=== PATIENT | female | born 1995 | race Caucasian/White ===

== ENCOUNTER 2019-06-22 18:10 | Inpatient (IN) | payer BC, SELFPAY ==
[2019-06-22 18:22] LABS: Actual Bicarbonate (HCO3a) 1.9 mEq/L (22-28); Analyzer IN Cardio ER; Calcium, Ionized 1.12 mmol/L (1.12-1.30); Hemoglobin (Hb) 12.7 g/dL (12.0-16.0); O2 Tension (PaO2) 147.3 mmHg (80.0-100.0); Potassium - ABG Lab 4.68 mmol/L (3.70-5.30)
[2019-06-22] MEDS ORDERED: Sodium Bicarb 50 MEQ/50 ML VIAL ONE (18:24)
[2019-06-22 18:30] LABS: pH, Arterial 6.86 (7.35-7.45)
[2019-06-22 18:31] LABS: Base Excess (BEa) -30.3 mEq/L (-2.0 to +3.0); Puncture Site LRA
--- NOTE | 2019-06-22 18:37 | RAD ---
Chest AP view INDICATION: Diabetic ketoacidosis COMPARISON: None FINDINGS: Lungs:The lungs are clear Cardiac silhouette:The cardiomediastinal silhouette appears within normal limits. Pulmonary vasculature:Normal Pleural spaces:No pleural effusion or pneumothorax is demonstrated. Upper abdomen:No abnormality seen. Osseous structures: No acute osseous abnormality. Additional findings:None. IMPRESSION: No acute cardiopulmonary abnormality.
[2019-06-22 18:38] LABS: Hemoglobin 12.3 g/dL (12.0-16.0); Mean Corpuscular HGB CONC 31.9 g/dL (32.0-36.0); Mean Corpuscular Hemoglobin 32.2 pg (27.0-31.0); Mean Platelet Volume 6.6 fL (7.4-10.4); Platelet Count 547 thou/uL (130-400); RBC Distribution Width 14.3 % (11.5-14.5); Red Blood Cell (RBC) Count 3.82 mill/uL (4.20-5.40); White Blood Cell (WBC) Count 19.8 thou/uL (4.8-10.8)
[2019-06-22 18:40] LABS: Bilirubin Negative (Negative); Blood, Urine Negative (Negative); Clarity Clear (Clear); Glucose, Urine (Dipstick) Greater than 1000 mg/dL (Negative); Leukocyte Negative Leu/uL (Negative); Nitrite Negative (Negative); Protein, Urine (Dipstick) 20 mg/dL (Neg-Trace); Urobilinogen Normal mg/dL (Less than 2)
[2019-06-22 18:44] LABS: Pregnancy Test - Urine (BHCG) Negative (Negative); Pregu Control Background? CLEAR/WHITE (CLR/WHITE); Pregu Control Bar Appear? YES (CONTROL BAR); Specific Gravity 1.021 (1.002-1.036)
[2019-06-22] MEDS ORDERED: D5 1/2 NS w/40 mEq KCL 1,000 ML IV SCH (18:45)
[2019-06-22] MEDS ORDERED: Insulin Regular 100 units/100 ml in NS IVPB SCH (18:45)
[2019-06-22 18:47] LABS: BHCG - Serum Negative (NEGATIVE); Pregs Control Background? CLEAR/WHITE (CLR/WHITE); Pregs Control Bar Appear? YES (CONTROL BAR)
[2019-06-22] MEDS ORDERED: Cefepime 1 GM VIAL ONE (18:50)
[2019-06-22 18:54] LABS: Band 13 % (5-11); Lymphocytes 23 % (21-51); MDiff Complete? YES; Macrocytosis SLIGHT = 6-15 cells (100X) (0-5/hpf); Metamyelocyte 1 % (0-0); Monocytes 3 % (0-10); Neutrophil 53 % (42-75); Platelet Morphology Comment Appears Increased; Reactive Lymphocytes 7 % (0-10)
[2019-06-22 18:55] LABS: Amphetamine Not Detected (NotDetected); Barbiturates Screen Not Detected (NotDetected); Benzodiazepine Screen Not Detected (NotDetected); Cocaine Metabolite Screen Not Detected (NotDetected); Medtox Control Line Valid? VALID (VALID); Medtox Reader # READER 4; Methadone Not Detected (NotDetected); Methamphetamine Not Detected (NotDetected); Opiate Screen Not Detected (NotDetected); Oxycodone Screen Not Detected (NotDetected); Phencyclidine (PCP) Not Detected (NotDetected); THC/Cannabinoid Screen Not Detected (NotDetected); Tricyclic Screen Not Detected (NotDetected)
[2019-06-22 18:57] LABS: Acetaminophen Less than 6.0 mcg/mL (10.0-30.0); Alcohol Less than 10 mg/dL (Less than 10); Magnesium 2.1 mg/dL (1.6-2.6); Salicylate Less than 8.0 mg/dL (15.0-30.0)
[2019-06-22 18:59] LABS: ALT (SGPT) 119 U/L (8-55); AST (SGOT) 91 U/L (5-34); Alkaline Phosphatase 142 U/L (40-110); BUN (Urea Nitrogen) 11 mg/dL (7.0-18.7); Bilirubin, Total Less than 0.2 mg/dL (0.2-1.2); Calc. Creatinine Clearance 0 mL/min (70-130); Calcium 7.5 mg/dL (7.8-10.44); Chloride 110 mmol/L (98-107); Estimated GFR-MDRD 55; Lipase 20 U/L (8-78); Sodium 140 mmol/L (136-145)
[2019-06-22] MEDS ORDERED: Insulin Regular 300 UNITS/3 ML VIAL ONE (18:59)
[2019-06-22 19:05] LABS: Carbon Dioxide Less than 8 mmol/L (22-29); Glucose 749 mg/dL (70-105)
[2019-06-22 19:14] LABS: Free T4 (Free Thyroxine) 0.71 ng/dL (0.70-1.48); Thyroid Stimulating Hormone 0.3368 uIU/mL (0.35-4.94)
--- NOTE | 2019-06-22 19:55 | CT ---
CT Brain WO Con: 06/22/2019 7:18 PM CLINICAL HISTORY: Unresponsive history of DKA. IMAGING TECHNIQUE: Multiple CT images were obtained of the brain without IV contrast. COMPARISON: None. FINDINGS: Brain: No acute infarct or hemorrhage is evident. No midline shift. Ventricles: Normal. No hydrocephalus.. Skull: Intact.. Visualized Paranasal sinuses: Clear.. Mastoid air cells:Clear. Extracranial soft tissues:Normal. IMPRESSION: No acute intracranial abnormality.
[2019-06-22 20:13] LABS: BUN (Urea Nitrogen) 11 mg/dL (7.0-18.7); Calc. Creatinine Clearance 0 mL/min (70-130); Calcium 6.2 mg/dL (7.8-10.44); Carbon Dioxide Less than 8 mmol/L (22-29); Chloride 115 mmol/L (98-107); Estimated GFR-MDRD 75; Glucose 601 mg/dL (70-105); Potassium 3.6 mmol/L (3.5-5.1); Sodium 144 mmol/L (136-145)
[2019-06-22] MEDS ORDERED: Calcium Chloride 1 GM/10 ML Abboject SYRINGE ONE (20:23)
--- NOTE | 2019-06-22 20:26 | ULT ---
RIGHT UPPER QUADRANT ULTRASOUND CLINICAL HISTORY: DKA and elevated LFTs. COMPARISON: None FINDINGS: Liver:Diffuse increased echogenicity. The liver is enlarged measuring 21 cm. Intrahepatic bile ducts: No intrahepatic or extrahepatic biliary dilation.; Common bile duct: 2.5 mm. Gallbladder: Normal appearing. Alexander's sign:None Main portal vein:Patent with hepatopedal flow. Pancreas:Visualized pancreas appears normal. Right kidney: Right kidney measures 11.5 x 4.1 x 4.7 cm. No focal renal lesion or hydronephrosis. Additional findings: None. IMPRESSION: Hepatomegaly with fatty infiltration
[2019-06-22] MEDS ORDERED: Sodium Bicarb 50 MEQ/50 ML Abboject 8.4% SYRINGE ONE (20:41)
[2019-06-22] MEDS ORDERED: STERILE WATER IV SCH (20:45)
[2019-06-22] MEDS ORDERED: SODIUM BICARBONATE IV SCH (20:45)
[2019-06-22] MEDS ORDERED: Sodium Chloride 0.9% 1,000 ML IV PRN ×4 (21:01)
[2019-06-22] MEDS ORDERED: D5 1/2 NS w/20 mEq KCL 1,000 ML IV PRN (21:01)
[2019-06-22] MEDS ORDERED: Dextrose 5 %-0.45 % NaCl 1,000 ML IV PRN (21:01)
[2019-06-22] MEDS ORDERED: CCU Electrolyte Replacement 1 EACH IVPB SCH (21:01)
[2019-06-22] MEDS ORDERED: NS 0.9% w/ 20 MEQ KCL 1,000 ML IV PRN ×2 (21:01)
[2019-06-22] MEDS ORDERED: HUMULIN R 100 UNITS in Sodium Chloride 0.9% 100 ML IVPB SCH (21:15)
[2019-06-22 21:25] LABS: Bilirubin Negative (Negative); Blood, Urine 1+ (Negative); Clarity Clear (Clear); Glucose, Urine (Dipstick) Greater than 1000 mg/dL (Negative); Leukocyte Negative Leu/uL (Negative); Mucous/LPF Rare LPF (<2+); Nitrite Negative (Negative); Protein, Urine (Dipstick) 20 mg/dL (Neg-Trace); RBC/HPF 0-3 HPF (0-3); Squamous Epithelial 0-3 HPF (0-3); Urobilinogen Normal mg/dL (Less than 2); WBC/HPF None Seen HPF (0-3)
[2019-06-22] MEDS ORDERED: CCU ELECTROLYTE REPLACEMENT PROTOCOL FS PRN (21:26)
[2019-06-22] MEDS ORDERED: Potassium Phosphate 9 MMOL in Sodium Chloride 0.9% 100 ML IVPB PRN (21:26)
[2019-06-22] MEDS ORDERED: Potassium Chloride 40 MEQ in Sodium Chloride 0.9% 250 ML 250 ML IVPB PRN (21:26)
[2019-06-22] MEDS ORDERED: PHOS-NAK 1 PKT PACK PO PRN ×2 (21:26)
[2019-06-22] MEDS ORDERED: Potassium Phosphate 12 MMOL in Sodium Chloride 0.9% 250 ML 250 ML IV PRN (21:26)
[2019-06-22] MEDS ORDERED: Magnesium 2 GM/50 ML 2 GM in Premix Bag 1 BAG IVPB PRN (21:26)
[2019-06-22] MEDS ORDERED: Potassium Phosphate 15 MMOL in Sodium Chloride 0.9% 250 ML 250 ML IV PRN (21:26)
[2019-06-22] MEDS ORDERED: Potassium Chloride 20 MEQ TAB PO PRN (21:26)
[2019-06-22] MEDS ORDERED: Magnesium Oxide 400 MG TAB PO PRN ×2 (21:26)
[2019-06-22 21:29] LABS: Lactic Acid 3.1 mmol/L (0.5-2.2)
[2019-06-22 21:34] LABS: BUN (Urea Nitrogen) 10 mg/dL (7.0-18.7); Calc. Creatinine Clearance 0 mL/min (70-130); Calcium 7.6 mg/dL (7.8-10.44); Carbon Dioxide Less than 8 mmol/L (22-29); Chloride 120 mmol/L (98-107); Estimated GFR-MDRD 71; Glucose 380 mg/dL (70-105); Potassium 4.3 mmol/L (3.5-5.1); Sodium 150 mmol/L (136-145)
[2019-06-22 21:38] LABS: Bacteria/HPF Rare-Few HPF (None Seen)
[2019-06-22] MEDS ORDERED: Sodium Bicarb 50 MEQ/50 ML VIAL IVP SCH (21:45)
[2019-06-22] MEDS: cefTRIAXone\\ROCEPHIN 1 GM in Sodium Chloride 0.9% 100 ML IVPB SCH (21:53)
[2019-06-22 21:54] LABS: Magnesium 1.7 mg/dL (1.6-2.6); Phosphorus 3.4 mg/dL (2.3-4.7)
[2019-06-22] MEDS ORDERED: Sodium Bicarbonate 150 MEQ in Dextrose 5% in Water 1,000 ML IV SCH (22:00)
[2019-06-22] MEDS ORDERED: Potassium Phosphate 30 MMOL in Sodium Chloride 0.9% 500 ML IVPB SCH (22:00)
[2019-06-22 22:02] VITALS: BMI 22.2
[2019-06-22] MEDS: Nicotine 14 MG PATCH TD SCH (22:21)
[2019-06-22 22:25] LABS: #Basophils 0.1 thou/uL (0.0-0.2); #Lymphocytes 2.3 thou/uL (1.20-3.40); #Neutrophils 11.6 thou/uL (1.40-6.50); %Basophils 0.5 % (0.0-1.0); %Eosinophils 0.2 % (0.0-10.0); %Lymphocytes 15.5 % (21.0-51.0); %Monocytes 6.6 % (0.0-10.0); %Neutrophils 77.2 % (42.0-75.0); Hemoglobin 10.7 g/dL (12.0-16.0); Mean Corpuscular HGB CONC 32.7 g/dL (32.0-36.0); Mean Corpuscular Volume 94.8 fL (78.0-98.0); Platelet Count 369 thou/uL (130-400); RBC Distribution Width 13.7 % (11.5-14.5); Red Blood Cell (RBC) Count 3.46 mill/uL (4.20-5.40)
--- NOTE | 2019-06-22 22:31 | HP ---
PRESENTING COMPLAINT: Altered mental status and hyperglycemia. HISTORY OF PRESENT ILLNESS: Ms. Nickolas Philippe is a 23-year-old female with past medical history of type 1 diabetes mellitus diagnosed at age of 11, on Tresiba and NovoLog insulin, who was brought in by EMS after the patient presented because of progressive drowsiness. In the urgent care, she was noted with glucose of over 700. She received 2 L IV fluid bolus and was transferred here. In the emergency room, on arrival, the patient was poorly responsive with breathing. She was started on nasal cannula initially. Discussion was made to intubate, but later deferred. She was noted with severe acidosis with bicarb of 2 and pH of 6.8. She was given IV sodium bicarb boluses as well as started on IV fluid and insulin drip. Her glucose on presentation was 749, was improving, with repeat to 600. The patient is slowly becoming more awakened. She admits to history of recent nasal congestion with rhinorrhea. She denies any sick contacts. Mother at bedside states cousins at home had recent flu-like symptoms. The patient apparently developed nausea and vomiting today prior to becoming drowsy at the urgent care visit. She denies any abdominal pain, but admits to generalized weakness. Her breathing pattern is slowly improving. She has been admitted for severe DKA. PAST MEDICAL HISTORY: Significant for diabetes mellitus with frequent episodes of DKA, last episode was over a year ago. HOME MEDICATIONS: Include Tresiba as well as NovoLog. The patient apparently ran out of medication earlier this morning and has not taken any of her NovoLog today. SOCIAL HISTORY: The patient admits to tobacco use. She smokes about 9 cigarettes per day. Denies any alcohol or illicit drug use. She resides in the community with the mother and her son. She is currently unemployed. FAMILY HISTORY: No history of diabetes mellitus. REVIEW OF SYSTEMS: Poor given the patient's drowsy state. The patient denies any other symptoms except those mentioned above on 10-symptoms review. She does admit to intermittent urine incontinence and polyuria since the last 4 days. ALLERGIES: [employer]ER. PHYSICAL EXAMINATION: CURRENT VITAL SIGNS: Blood pressure of 100/61, pulse of 123, respiratory rate of 19, O2 saturation is 98% on 2 L nasal cannula. GENERAL: Small, beautiful, young female, drowsy, but arousable and conversant. Appeared to be in mild pain distress. HEAD: Atraumatic, but marked facial flushing noted. Dry oral mucosa with no patches. NECK: No JVD. No carotid bruit. RESPIRATORY: Good air entry. No crepitation, but tachypneic. CARDIOVASCULAR: S1, S2. EXTREMITIES: Mild digital edema noted over the hand digits. Trace lower extremity pedal edema also noted, but no calf tenderness. Negative Homans sign. NEUROLOGIC: The patient is drowsy, but is slowly becoming more arousable and conversant with monotonous questions. LABORATORY DATA: Initial WBC of 19.8 with 13% bands, neutrophils 53%, hemoglobin 12.3. ABG with pH of 6.86 with bicarb of 1.9, pO2 of 147, A-a gradient of 38. Sodium 139, potassium 4.6 on ABG, serum sodium of 144, potassium of 3.6, chloride of 115, bicarb of less than 8, anion gap unable to measure, creatinine of 0.9, BUN of 11, lactic acid 2.7, magnesium 2.1. AST 91, ALT 190, alkaline phosphatase 142, free T4 0.7. Normal TSH of 0.33. Urine was negative. Urinalysis was negative except for greater than 1000 glucose and greater than 150 ketones. Urine drug screen was negative. Beta-hydroxybutyrate of 11.8, plasma alcohol less than 10. IMAGING DATA: Chest x-ray shows no acute cardiopulmonary process. Head CT shows no acute intracranial abnormality. EKG shows sinus tachycardia at 147 beats per minute. No ST-segment changes. Abdominal ultrasound shows hepatomegaly with fatty infiltration. IMPRESSION: 1. Diabetic ketoacidosis. 2. Severe metabolic acidosis. 3. Acute respiratory failure due to metabolic acidosis. 4. Elevated LFTs with possible nonalcoholic steatohepatitis. 5. Chronic tobacco use. 6. Leukocytosis with bandemia. PLAN: We will admit the patient to the intensive care unit. We will manage the patient for the followin. Diabetic ketoacidosis. We start insulin drip protocol. We will replace potassium with potassium phosphate. Follow glucose q.1 and BMP stat now as well as repeat q.4 hours. The patient has received 4 amps of bicarb. We will follow repeat BMP. The patient may need to start bicarb drip now until serum bicarb greater than 12. We will continue aggressive IV fluid. We will start empirical antibiotics given leukocytosis and bandemia, with Levaquin. We will also obtain blood culture x2. 2. Chronic tobacco use. Do nicotine patch. 3. Leukocytosis of unclear etiology. Follow blood culture. 4. DVT prophylaxis, subcutaneous Lovenox. Total time spent in review of record, discussion with patient and family, as well as evaluation greater than 60 minutes. Job ID: [id number]
[2019-06-22 23:39] LABS: BUN (Urea Nitrogen) 8 mg/dL (7.0-18.7); Calc. Creatinine Clearance 88 mL/min (70-130); Calcium 7.3 mg/dL (7.8-10.44); Chloride 122 mmol/L (98-107); Estimated GFR-MDRD 84; Glucose 177 mg/dL (70-105); Potassium 3.8 mmol/L (3.5-5.1); Sodium 153 mmol/L (136-145)
[2019-06-22 23:43] LABS: Carbon Dioxide Less than 8 mmol/L (22-29)
[2019-06-23] MEDS ORDERED: Dextrose 50 % In Water 50 ML SYRINGE IV SCH ×2 (00:45→04:30)
[2019-06-23] MEDS ORDERED: Dextrose 50 % In Water 50 ML SYRINGE ONE ×2 (00:45→04:12)
[2019-06-23] MEDS ORDERED: Sodium Bicarbonate 150 MEQ in Dextrose 5% in Water 1,000 ML IV SCH (01:00)
[2019-06-23 03:20] LABS: Actual Bicarbonate (HCO3a) 16.1 mEq/L (22-28); Base Excess (BEa) -7.3 mEq/L (-2.0 to +3.0); CO2 Tension 26.1 mmHg (35.0-45.0); Calcium, Ionized 1.05 mmol/L (1.12-1.30); Carboxyhemoglobin (COHb) 0.4 gm% (0.0-3.0); Hemoglobin (Hb) 10.3 g/dL (12.0-16.0); O2 Tension (PaO2) 102.5 mmHg (80.0-100.0); Potassium - ABG Lab 3.16 mmol/L (3.70-5.30); pH, Arterial 7.41 (7.35-7.45)
[2019-06-23 03:25] LABS: ALV-art Gradient 64.515 (0-20)
[2019-06-23 03:51] LABS: ALT (SGPT) 85 U/L (8-55); AST (SGOT) 67 U/L (5-34); Alkaline Phosphatase 91 U/L (40-110); Anion Gap 18 mmol/L (10-20); BUN (Urea Nitrogen) 7 mg/dL (7.0-18.7); Bilirubin, Total Less than 0.2 mg/dL (0.2-1.2); Calc. Creatinine Clearance 98 mL/min (70-130); Calcium 7.1 mg/dL (7.8-10.44); Carbon Dioxide 15 mmol/L (22-29); Chloride 120 mmol/L (98-107); Estimated GFR-MDRD Greater than 90; Globulin 2.2 g/dL (2.4-3.5); Glucose 128 mg/dL (70-105); Potassium 3.2 mmol/L (3.5-5.1); Protein, Total 5.2 g/dL (6.0-8.3); Sodium 150 mmol/L (136-145)
[2019-06-23] MEDS: Potassium Chloride 40 MEQ in Premix Bag 1 BAG IVPB PRN ×2 (03:57→08:33)
[2019-06-23] MEDS: D5 1/2 NS w/20 mEq KCL 1,000 ML IV SCH ×2 (04:12→11:26)
[2019-06-23 07:49] LABS: Anion Gap 17 mmol/L (10-20); BUN (Urea Nitrogen) 6 mg/dL (7.0-18.7); Calc. Creatinine Clearance 102 mL/min (70-130); Calcium 7.4 mg/dL (7.8-10.44); Carbon Dioxide 20 mmol/L (22-29); Chloride 117 mmol/L (98-107); Estimated GFR-MDRD Greater than 90; Glucose 214 mg/dL (70-105); Potassium 3.5 mmol/L (3.5-5.1); Sodium 150 mmol/L (136-145)
--- NOTE | 2019-06-23 08:06 | PDOC.HOSPP ---
- Subjective Encounter Date: 06/23/19 Encounter Time: 08:04 Subjective: no specific complaints - Objective Vital Signs & Weight: Vital Signs (12 hours) Temp Pulse Resp BP Pulse Ox 06/23/19 07:00 98.6 F 06/23/19 04:00 100 06/23/19 03:00 98.3 F 06/22/19 23:00 97.8 F 06/22/19 22:49 100 06/22/19 21:23 98.1 F 130 H 29 H 118/72 99 Weight Admit Weight 117 lb 15.157 oz Weight 117 lb 15.157 oz Most Recent Monitor Data Heart Rate from ECG 103 NIBP 103/59 NIBP BP-Mean 73 Respiration from ECG 7 SpO2 100 I&O: 06/22/19 06/23/19 06/24/19 06:59 06:59 06:59 Intake Total 3230 Output Total 2024 Balance 1205 Result Diagrams: 06/22/19 22:14 06/23/19 07:09 Additional Labs: Accuchecks 06/23/19 06/23/19 06/23/19 07:17 06:11 05:08 POC Glucose 185 H 104 148 H 06/23/19 06/23/19 06/23/19 04:05 03:00 02:07 POC Glucose 92 122 H 195 H 06/23/19 06/23/19 06/22/19 01:14 00:22 23:26 POC Glucose 246 H 126 H 222 H 06/22/19 06/22/19 06/22/19 22:19 21:35 21:14 POC Glucose 277 H 326 H 405 H 06/22/19 06/22/19 19:51 18:55 POC Glucose 447 H Greater than 550 H* Hospitalist ROS - Medication Medications: Active Medications Generic Name Dose Route Start Last Admin Trade Name Freq PRN Reason Stop Dose Admin Ceftriaxone Sodium 1 gm/ 100 mls @ 200 mls/hr 06/22/19 21:30 06/22/19 21:53 Sodium Chloride IVPB 100 mls Q24HR YELENA Administration Levofloxacin 750 mg/ Device 150 mls @ 100 mls/hr 06/22/19 22:00 06/22/19 21: 59 IVPB 150 mls Q24HR YELENA Administration Potassium Chloride 40 meq/ 100 mls @ 50 mls/hr 06/22/19 21:26 06/23/19 03:57 Device IVPB 100 mls ASDIR PRN Administration FOR SERUM K+ 2.5 - 3.5 Magnesium Sulfate 1 gm/ Sodium 102 mls @ 102 mls/hr 06/22/19 21:26 06/23/19 00:23 Chloride IV 102 mls PRN PRN Administration MAG LEVEL 1.4 - 2.0 Potassium Chloride/Dextrose/Sod Cl 1,000 mls @ 200 mls/hr 06/23/19 04:15 04:12 D5 1/2 Ns W/20 Meq Kcl IV 1,000 mls .Q5H YELENA Administration Nicotine 14 mg 06/22/19 22:00 06/22/19 22:21 Nicoderm Patch TD 14 mg Q24HR YELENA Administration - Exam General Appearance: awake alert Heart: RRR, no murmur Respiratory: CTAB, no wheezes Gastrointestinal: soft, normal bowel sounds, tender to palpation Extremities: no edema Hosp A/P (1) DKA, type 1 Code(s): E10.10 - TYPE 1 DIABETES MELLITUS WITH KETOACIDOSIS WITHOUT COMA Status: Acute Qualifiers: Diabetes mellitus complication detail: without coma Qualified Code(s): E10.10 - Type 1 diabetes mellitus with ketoacidosis without coma (2) Encephalopathy acute Code(s): G93.40 - ENCEPHALOPATHY, UNSPECIFIED Status: Resolved (3) Nausea & vomiting Code(s): R11.2 - NAUSEA WITH VOMITING, UNSPECIFIED Status: Resolved Qualifiers: Vomiting type: unspecified Vomiting Intractability: non-intractable Qualified Code(s): R11.2 - Nausea with vomiting, unspecified (4) Abdominal pain Code(s): R10.9 - UNSPECIFIED ABDOMINAL PAIN Status: Acute Qualifiers: Abdominal location: generalized Qualified Code(s): R10.84 - Generalized abdominal pain - Plan cont iv insulin, frequent accu, iv fluids obtain home meds/doses transition to subq insulin when acidosis cleared
[2019-06-23] MEDS: Famotidine/PF 20 mg/2ml Vial SLOW IVP SCH ×2 (08:33→20:50)
[2019-06-23] MEDS: Enoxaparin Sodium 30 MG/0.3 ML SYRINGE SC SCH (08:34)
[2019-06-23 09:18] LABS: CO2 Tension (PvCO2) 21.4 mmHg (40.0-50.0)
[2019-06-23 09:19] LABS: Base Excess-Venous Less than -30.0 mmol/L (-2.0 to 3.0); Bicarbonate (HCO3v) 2.7 mmol/L (22.0-28.0); vO2 Saturation-calc 86.1 % (60.0-85.0)
[2019-06-23 09:20] LABS: Calcium, Ionized 1.01 mmol/L (See Comments:); Chloride 114 mmol/L (98-107); Hemoglobin - Calc 13.9 g/dL (12.0-16.0); Sodium 137 mmol/L (138-145); T. Carbon Dioxide Less than 5.0 mmol/L (22.0-28.0)
[2019-06-23 09:22] LABS: CO2 Tension (PvCO2) 22.4 mmHg (40.0-50.0)
[2019-06-23 09:23] LABS: Base Excess-Venous Less than -30.0 mmol/L (-2.0 to 3.0); Bicarbonate (HCO3v) 2.9 mmol/L (22.0-28.0); Chloride 129 mmol/L (98-107); Hemoglobin - Calc 13.6 g/dL (12.0-16.0); Potassium 3.7 mmol/L (3.5-5.1); Sodium 146 mmol/L (138-145); vO2 Saturation-calc 92.5 % (60.0-85.0)
[2019-06-23 09:24] LABS: T. Carbon Dioxide Less than 5.0 mmol/L (22.0-28.0)
[2019-06-23] MEDS ORDERED: Acetaminophen 325 MG TAB PO PRN (10:50)
[2019-06-23] MEDS ORDERED: Dextrose 5% in Water 1,000 ML IV PRN (10:50)
[2019-06-23] MEDS ORDERED: Dextrose 50% Abboject 50 ML SYRINGE IVP PRN (10:50)
[2019-06-23] MEDS: HumaLOG 300 UNITS/3 ML VIAL SC PRN ×3 (11:21→17:05)
[2019-06-23] MEDS: Insulin Glargine 34 UNITS in Pre-Filled Syringe 1 EACH SC SCH (20:50)
[2019-06-23] MEDS: cefTRIAXone\\ROCEPHIN 1 GM in Sodium Chloride 0.9% 100 ML IVPB SCH (20:50)
[2019-06-23] MEDS: Nicotine 14 MG PATCH TD SCH (21:51)
[2019-06-24] MEDS: HumaLOG 300 UNITS/3 ML VIAL SC PRN ×4 (00:35→20:28)
[2019-06-24 06:16] LABS: Anion Gap 17 mmol/L (10-20); BUN (Urea Nitrogen) 6 mg/dL (7.0-18.7); Calc. Creatinine Clearance 103 mL/min (70-130); Calcium 8.2 mg/dL (7.8-10.44); Carbon Dioxide 20 mmol/L (22-29); Chloride 108 mmol/L (98-107); Estimated GFR-MDRD Greater than 90; Glucose 136 mg/dL (70-105); Potassium 3.2 mmol/L (3.5-5.1); Sodium 142 mmol/L (136-145)
[2019-06-24] MEDS: Famotidine/PF 20 mg/2ml Vial SLOW IVP SCH ×2 (08:34→20:27)
[2019-06-24] MEDS: Enoxaparin Sodium 30 MG/0.3 ML SYRINGE SC SCH (08:37)
--- NOTE | 2019-06-24 14:29 | PDOC.HOSPP ---
- Subjective Encounter Date: 06/24/19 Encounter Time: 14:28 Subjective: mild dizziness , OW much better - Objective Vital Signs & Weight: Vital Signs (12 hours) Temp Pulse Resp BP Pulse Ox 06/24/19 08:00 98.0 F 86 16 111/72 98 06/24/19 05:33 98.1 F 84 20 124/85 100 Weight Admit Weight 117 lb 15.157 oz Weight 117 lb 15.157 oz Most Recent Monitor Data Heart Rate from ECG 112 NIBP 99/53 NIBP BP-Mean 68 Respiration from ECG 14 SpO2 98 I&O: 06/23/19 06/24/19 06/25/19 06:59 06:59 06:59 Intake Total 3230 3124 Output Total 2024 710 Balance 1205 2414 Result Diagrams: 06/22/19 22:14 06/24/19 05:36 Additional Labs: Accuchecks 06/24/19 06/24/19 06/24/19 11:22 09:17 05:48 POC Glucose 168 H 98 146 H 06/24/19 06/23/19 06/23/19 00:00 20:13 17:04 POC Glucose 336 H 154 H 226 H 06/23/19 15:26 POC Glucose 232 H Hospitalist ROS - Medication Medications: Active Medications Generic Name Dose Route Start Last Admin Trade Name Freq PRN Reason Stop Dose Admin Acetaminophen 650 mg 06/23/19 10:50 06/23/19 11:18 Tylenol PO 650 mg Q4H PRN Administration Headache/Fever or Pain Enoxaparin Sodium 30 mg 06/23/19 09:00 06/24/19 08:37 Lovenox SC Not Given 09 YELENA Famotidine 20 mg 06/23/19 09:00 06/24/19 08:34 Pepcid SLOW IVP 20 mg Q12HR YELENA Administration Ceftriaxone Sodium 1 gm/ 100 mls @ 200 mls/hr 06/22/19 21:30 06/23/19 20:50 Sodium Chloride IVPB 100 mls Q24HR YELENA Administration Levofloxacin 750 mg/ Device 150 mls @ 100 mls/hr 06/22/19 22:00 06/23/19 21: 44 IVPB 150 mls Q24HR YELENA Administration Potassium Chloride 40 meq/ 100 mls @ 50 mls/hr 06/22/19 21:26 06/23/19 08:33 Device IVPB 100 mls ASDIR PRN Administration FOR SERUM K+ 2.5 - 3.5 Magnesium Sulfate 1 gm/ Sodium 102 mls @ 102 mls/hr 06/22/19 21:26 06/23/19 00:23 Chloride IV 102 mls PRN PRN Administration MAG LEVEL 1.4 - 2.0 Insulin Glargine 34 units/ 0.34 mls @ 0 mls/hr 06/23/19 21:00 06/23/19 20:50 Miscellaneous Medication SC 0.34 mls HS YELENA Administration Insulin Human Lispro 0 units 06/23/19 10:50 06/24/19 13:10 Humalog SC 2 unit .MODERATE SLIDING SC PRN Administration MODERATE SLIDING SCALE Protocol Nicotine 14 mg 06/22/19 22:00 06/23/19 21:51 Nicoderm Patch TD 14 mg Q24HR YELENA Administration Sodium Chloride 10 ml 06/23/19 09:00 06/24/19 08:37 Flush - Normal Saline IVF 10 ml Q12HR YELENA Administration - Exam General Appearance: awake alert Neck: no JVD Heart: RRR, no murmur Respiratory: CTAB Gastrointestinal: soft, normal bowel sounds Extremities: no edema Hosp A/P (1) DKA, type 1 Code(s): E10.10 - TYPE 1 DIABETES MELLITUS WITH KETOACIDOSIS WITHOUT COMA Status: Acute Qualifiers: Diabetes mellitus complication detail: without coma Qualified Code(s): E10.10 - Type 1 diabetes mellitus with ketoacidosis without coma (2) Encephalopathy acute Code(s): G93.40 - ENCEPHALOPATHY, UNSPECIFIED Status: Resolved (3) Nausea & vomiting Code(s): R11.2 - NAUSEA WITH VOMITING, UNSPECIFIED Status: Resolved Qualifiers: Vomiting type: unspecified Vomiting Intractability: non-intractable Qualified Code(s): R11.2 - Nausea with vomiting, unspecified (4) Abdominal pain Code(s): R10.9 - UNSPECIFIED ABDOMINAL PAIN Status: Resolved Qualifiers: Abdominal location: generalized Qualified Code(s): R10.84 - Generalized abdominal pain - Plan on accu/ss/ esual basal insulin cont iv fluids for 24 hrs poss AM DC
[2019-06-24 15:13] LABS: #Eosinphils 0.1 thou/uL (0.0-0.7); #Lymphocytes 2.7 thou/uL (1.20-3.40); #Monocytes 0.5 thou/uL (0.11-0.59); #Neutrophils 3.1 thou/uL (1.40-6.50); %Basophils 0.5 % (0.0-1.0); %Eosinophils 1.4 % (0.0-10.0); %Lymphocytes 42.1 % (21.0-51.0); %Monocytes 7.3 % (0.0-10.0); %Neutrophils 48.8 % (42.0-75.0); Hemoglobin 10.3 g/dL (12.0-16.0); Mean Corpuscular HGB CONC 34.2 g/dL (32.0-36.0); Mean Corpuscular Volume 93.6 fL (78.0-98.0); Mean Platelet Volume 5.8 fL (7.4-10.4); Platelet Count 226 thou/uL (130-400); Red Blood Cell (RBC) Count 3.23 mill/uL (4.20-5.40); White Blood Cell (WBC) Count 6.4 thou/uL (4.8-10.8)
[2019-06-24] MEDS: Insulin Glargine 34 UNITS in Pre-Filled Syringe 1 EACH SC SCH (20:27)
[2019-06-24] MEDS: cefTRIAXone\\ROCEPHIN 1 GM in Sodium Chloride 0.9% 100 ML IVPB SCH (20:36)
[2019-06-24] MEDS: Nicotine 14 MG PATCH TD SCH (21:34)
[2019-06-25] MEDS: HumaLOG 300 UNITS/3 ML VIAL SC PRN ×2 (00:20→10:59)
[2019-06-25 05:45] LABS: Anion Gap 10 mmol/L (10-20); BUN (Urea Nitrogen) 7 mg/dL (7.0-18.7); Calc. Creatinine Clearance 139 mL/min (70-130); Calcium 8.5 mg/dL (7.8-10.44); Carbon Dioxide 28 mmol/L (22-29); Chloride 107 mmol/L (98-107); Estimated GFR-MDRD Greater than 90; Potassium 3.5 mmol/L (3.5-5.1); Sodium 141 mmol/L (136-145)
[2019-06-25 05:52] LABS: Glucose 45 mg/dL (70-105)
[2019-06-25] MEDS: Enoxaparin Sodium 30 MG/0.3 ML SYRINGE SC SCH (09:13)
[2019-06-25] MEDS: Famotidine/PF 20 mg/2ml Vial SLOW IVP SCH (10:53)
--- NOTE | 2019-06-25 12:08 | DIS ---
DATE OF ADMISSION: 06/22/2019 DATE OF DISCHARGE: 06/25/2019 PRIMARY CARE PHYSICIAN: Dr. Celestine Guerra. Discharged home. FINAL DIAGNOSES: 1. Acute diabetic ketoacidosis. 2. Type 1 diabetes. 3. Encephalopathy, resolved. 4. Nausea and vomiting, resolved. 5. Abdominal pain, resolved. DISCHARGE MEDICINES: Same as home medicines. She takes insulin degludec 34 units subcu in the evening. She takes a sliding scale insulin with meals. ALLERGIES: NONE. HOSPITAL COURSE: The patient admitted with encephalopathy, severe diabetic ketoacidosis with blood sugar 749, CO2 less than 8, chloride 110, sodium 140, potassium 5.0. White count was 19.8, hemoglobin 12.3, platelet count 547,000. She was treated with sliding scale. She was treated with IV insulin, frequent Accu-Cheks, IV fluids. Her diabetic ketoacidosis resolved within 36 hours. She was transitioned to diet, her usual medicines, Accu-Cheks. Today, she is doing well. Her white count came down to 6.4, hemoglobin is 10.3, platelet count is 226,000. Her blood sugar has normalized, actually she has had a few hypoglycemic episodes from the sliding scale. Lytes are normal. CONSULTATIONS: None. PROCEDURES: None. She is being discharged on her usual medicines, diabetic diet, to follow up with Dr. Celestine Guerra in 3 days. Job ID: [id number]
[2019-06-25 12:16] VITALS: BP 138/94; TEMP 97.2
== END 2019-06-25 12:29 | disposition home or self-care (01) | DRG 637 ==
LOC: ERS 18:10 → MERGE 21:23 → CCU 21:23 → T4-A 06-23 21:34
PROVIDERS: ADMIT Internal Medicine; ATTEND Internal Medicine
DX: E10.10 Type 1 diabetes mellitus with ketoacidosis without coma (principal); G93.41 Metabolic encephalopathy; J96.01 Acute respiratory failure with hypoxia; D72.829 Elevated white blood cell count, unspecified; F17.210 Nicotine dependence, cigarettes, uncomplicated
CPT/HCPCS: 36415; 36416; 70450; 71045; 76705; 80048; 80053; 80306; 80307; 81003; 81025; 82010; 82330; 82533; 82803; 82805; 83605; 83690; 83735; 84100; 84439; 84443; 84703; 85014; 85025; 87040; 87086; 87804; 93005; A4217; A4353; J0692; J0696; J1650; J1815; J1956; J3475; J3480; J3490; J7050; J7070; S0028